=== PATIENT | female | born 1980 | race American Indian/Alaskan Native ===

== ENCOUNTER → 2021-09-18 | Outpatient (CLI) | payer MEDICAID | END | disposition home or self-care (01) | LOC: SLR 11:00 | PROVIDERS: ATTEND Surgery | DX: G47.30 Sleep apnea, unspecified (principal) | CPT/HCPCS: G0399 ==

== ENCOUNTER 2021-09-19 06:44 | Outpatient (CLI) | payer MEDICAID ==
--- NOTE | 2021-09-19 09:28 | XRay Report ---
CHEST 2 VIEWS INDICATION / CLINICAL INFORMATION: Preoperative evaluation, obesity. COMPARISON: None available. FINDINGS: SUPPORT DEVICES: None. HEART / MEDIASTINUM: No significant abnormality. LUNGS / PLEURA: No significant pulmonary or pleural abnormality. No pneumothorax. ADDITIONAL FINDINGS: No significant additional findings. IMPRESSION: 1. No acute findings. Signer Name: Lee Hart MD Signed: 09/19/2021 9:24 AM Workstation Name: [id number]
--- NOTE | 2021-09-19 10:26 | Fluoroscopy Report ---
Esophagram Indication: Morbid obesity, preoperative evaluation. Technique: Single and double contrast barium technique utilized to evaluate the esophagus. 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 This shows numerous surgical clips in the expected region of the thyroid. Small sample of thin barium was swallowed and no evidence of aspiration was id entified. Rapid sequence fluoroscopic evaluation of the cervical esophagus was performed in the later al and frontal projections. Patient was placed in the LPO position and double contrast fluoroscopic e valuation of the esophagus was performed. The patient was rotated to the horizontal position and the esophagus was evaluated with oral contrast. Maneuvers were made to attempt gastroesophageal reflux a nd hiatal hernia. A barium tablet was swallowed without difficulty and passed into the stomach withou t delay. Swallowing was normal. No mucosal irregularity, mass, mass effect, or critical stenosis. There were no abnormal tertiary c ontractions as seen with dysmotility. No gastroesophageal reflux. No hiatal hernia. Impression: Unremarkable fluoroscopic esophagram study. No evidence of esophageal abnormality. No evidence of gas troesophageal reflux or hiatal hernia. Fluoroscopic time: 1.6 minutes Number of fluoroscopic images: 24 Signer Name: Lee Hart MD Signed: 09/19/2021 10:21 AM Workstation Name: [id number]
== END 2021-09-19 06:45 | disposition home or self-care (01) ==
LOC: FLUORO 06:44
PROVIDERS: ATTEND Surgery
DX: K21.9 Gastro-esophageal reflux disease without esophagitis (principal); E66.01 Morbid (severe) obesity due to excess calories; K44.9 Diaphragmatic hernia without obstruction or gangrene
CPT/HCPCS: 71046; 74220

== ENCOUNTER 2021-10-13 11:00 | Outpatient (CLI) | payer MEDICAID | END 2021-10-13 11:01 | disposition home or self-care (01) | LOC: SLR 11:00 | PROVIDERS: ATTEND Surgery | DX: G47.33 Obstructive sleep apnea (adult) (pediatric) (principal) | CPT/HCPCS: 95811 ==

== ENCOUNTER 2021-10-31 09:28 | Outpatient (CLI) | payer MEDICAID | END 2021-10-31 09:29 | disposition home or self-care (01) | LOC: PF 09:28 | PROVIDERS: ATTEND Surgery | DX: E66.01 Morbid (severe) obesity due to excess calories (principal); E66.2 Morbid (severe) obesity with alveolar hypoventilation | CPT/HCPCS: 94010; 94726; 94729 ==

== ENCOUNTER 2021-11-07 06:42 | Day surgery (SDC) | payer MEDICAID ==
[2021-11-07] MEDS ORDERED: SODIUM CHLORIDE 0.9% 1000 ML 1,000 ML IV SCH (07:00)
--- NOTE | 2021-11-07 07:31 | Anesthesia Day of Surgery ---
Anesthesia Day of Surgery - Day of Surgery Patient Examined: Yes Patient H&P Reviewed: Yes Patient is NPO: Yes
--- NOTE | 2021-11-07 07:31 | Anesthesia Consultation ---
Anesthesia Consult and Med Hx - Airway Anesthetic Teeth Evaluation: Good ROM Head & Neck: Adequate Mental/Hyoid Distance: Adequate Mallampati Class: Class I Intubation Access Assessment: Good - Pulmonary Exam CTA: Yes - Cardiac Exam Cardiac Exam: RRR - Pre-Operative Health Status ASA Pre-Surgery Classification: ASA2 Proposed Anesthetic Plan: MAC - Pulmonary Hx Smoking: No Hx Asthma: No Hx Respiratory Symptoms: Yes (mild cough due to allergies - no fever) SOB: No Hx Sleep Apnea: Yes (New diagnosis - No CPAP) - Cardiovascular System Hx Hypertension: No Hx Coronary Artery Disease: No - Central Nervous System Hx Neuromuscular Disorder: No Hx Back Pain: Yes (Hx of Lumbar discectomy) Hx Psychiatric Problems: No - Gastrointestinal Hx Gastroesophageal Reflux Disease: No - Endocrine Hx Renal Disease: No Hx End Stage Renal Disease: No Hx Liver Disease: No Hx Thyroid Disease: Yes (Hx of total thyroidectomy) - Hematic Hx Anemia: No Hx Sickle Cell Disease: No - Other Systems Hx Alcohol Use: Yes (occasional) Hx Substance Use: No Hx Cancer: No Hx Obesity: Yes (BMI 40) - Additional Comments Anesthesia Medical History Comments: No hx of anesthetic complications
--- NOTE | 2021-11-07 08:19 | Discharge Summary ---
Providers - Providers Date of Admission: 11/07/2021 Date of discharge: 11/07/21 Attending physician: ZEYNEP GARZA MD Primary care physician: LI LITTLE Hospitalization Reason for admission: pre-op egd Condition: Good Procedures: egd w/ bx Hospital course: Pt presented for a pre-op EGD as part of planning for up coming bariatric surgery. Procedure was uneventful and pt recovered well and was discharged to home. Disposition: 01 HOME / SELF CARE / HOMELESS Final Discharge Diagnosis (Prints w/discharge instructions): morbid obesity, dyspepsia, hiatal hernia Core Measure Documentation - Palliative Care Palliative Care/ Comfort Measures: Not Applicable - Core Measures Any of the following diagnoses?: none Exam - Physical Exam Narrative exam: unchanged from pre-op Plan Activity: advance as tolerated Diet: low carbohydrate Follow up with: LI LITTLE PA [Primary Care Provider] - 7 Days
[2021-11-07] MEDS ORDERED: propofoL 200 MG/20 ML VIAL IV ONE ×2 (08:20→08:25)
[2021-11-07] MEDS ORDERED: LIDOCAINE MPF (2%) 20 MG/1 ML VIAL 5 ML ONE (08:20)
--- NOTE | 2021-11-07 08:21 | Operative Report ---
Operative Report Operative Report: DATE: 11/07/2021 SURGERY: Upper endoscopy. SURGEON: Ernestine Weiner M.D. PROCEDURE: EGD with biopsy PRE OP DX: morbid obesity, GERD POST OP DX: morbid obesity, GERD TYPE OF ANESTHESIA: MAC. ESTIMATED BLOOD LOSS: None. COMPLICATIONS: None. SPECIMENS REMOVED: antral biopsy FINDINGS: 1. moderate sized hiatal hernia. 2. antral gastritis INDICATIONS:INDICATION FOR PROCEDURE: Patient is a 41-year-old female with a long history of morbid obesity. She is planned to have a weight loss procedure and is here for preoperative planning EGD. PROCEDURE DETAILS: After consent was reviewed, patient was taken back to the operating room where patient was placed in the left lateral decubitus position and a bite block was placed in the mouth. After a time-out was called, MAC anesthesia was initiated. I then passed the endoscope into her oropharynx, into her esophagus, visualized the entire esophagus, which was all within normal limits. Z-line was noted to about 34cm from incisors. I then visualized the stomach and the first portion of the duodenum and there were no abnormalities I could clearly visualize except for antral gastritis. A cold forceps biopsy of the antrum was taken and will be sent to pathology to evaluate for H.pylori. I then retroflexed the scope in the stomach and visualized the hiatus and I could see a moderate sized ~2cm hiatal hernia. I then desufflated the stomach and removed the endoscope. Patient tolerated procedure well and was transferred to recovery room in good and stable condition.
[2021-11-07 09:45] VITALS: BP 115/67
--- NOTE | 2021-11-07 12:50 | Post Anesthesia Evaluation ---
- Post Anesthesia Evaluation Patient Participated: Yes Airway Patent: Yes Stable Respiratory Function: Yes Nausea/Vomiting: No Temp > 96.8F: Yes Pain Manageable: Yes Adequeate Hydration: Yes Anesthesia Complications: No
== END 2021-11-07 09:38 | disposition home or self-care (01) ==
LOC: GIO 06:42
PROVIDERS: ATTEND Surgery
DX: E66.01 Morbid (severe) obesity due to excess calories (principal); K21.9 Gastro-esophageal reflux disease without esophagitis; K30 Functional dyspepsia; K44.9 Diaphragmatic hernia without obstruction or gangrene; K29.50 Unspecified chronic gastritis without bleeding; B96.81 Helicobacter pylori [H. pylori] as the cause of diseases classified elsewhere; K31.89 Other diseases of stomach and duodenum; G47.30 Sleep apnea, unspecified; E03.9 Hypothyroidism, unspecified; Z91.013 Allergy to seafood; Z98.890 Other specified postprocedural states; Z68.43 Body mass index [BMI] 50.0-59.9, adult
CPT/HCPCS: 43239; 88305; 88342; J2704; J3490; J7030; J7120; Q0162